=== PATIENT | female | born 1970 | race African-American/Black ===

== ENCOUNTER 2020-04-19 18:05 | Emergency (ER) | payer MEDICAID ==
[~2020-04-19] VITALS: Ht 170.2 cm; Wt 77.0 kg
[2020-04-19 20:50] VITALS: BP 137/70
== END 2020-04-19 20:56 | disposition home or self-care (01) ==
LOC: ER 18:05
DX: T78.40XA Allergy, unspecified, initial encounter (principal); Z88.0 Allergy status to penicillin; Z88.6 Allergy status to analgesic agent; Z91.010 Allergy to peanuts; X58.XXXA Exposure to other specified factors, initial encounter
CPT/HCPCS: 99283